=== PATIENT | female | born 1995 | race African-American/Black ===

== ENCOUNTER 2017-02-07 10:55 | Emergency (ER) | payer OTHER ==
--- NOTE | ~2017-02-07 | EKG ---
PATIENT: ROBERT MATUTE UNIT #: [id number] Ventricular Rate: 58 BPM Atrial Rate: 58 BPM P-R Interval: 128 ms QRS Duration: 88 ms Q-T Interval: 408 ms QTC Calculation(Bezet): 400 ms P [place]: 34 degrees Calculated R [place]: 71 degrees Calculated T [place]: 12 degrees Diagnosis Line: Sinus bradycardia Diagnosis Line: Otherwise normal ECG Diagnosis Line: No previous ECGs available Diagnosis Line: Confirmed by CRYSTAL HOUSE MD ([id number]) on Diagnosis Line: 02/08/2017 11:09:46 AM INTERPRETING MD: HARSH ZAMORANO
--- NOTE | ~2017-02-07 | CR72 ---
[facility] A Service of [facility] RADIOLOGY TEXT RESULTS PATIENT: ROBERT MATUTE LOCATION: [facility] : [birth year] UNIT #: [id number] AGE: [address]: Justin Parra MD SEX: F ORDER DR: [id number] [facility] [address] [place], [place] [address] [id number] MR#: [id number] Acc #: [id number] NAME: ROBERT MATUTE : 1995 SEX: F STUDY DATE/TIME: 02/07/2017 1300 UNIT: [facility] ROOM: STUDY DESCRIPTION: CR Chest Single View Portable Attending Physician: Justin Parra M.D. Ordering Physician: Justin Parra M.D. Primary Care Physician: No Primary Care Physician MEDICAL IMAGING REPORT This report is preliminary unless electronic signature is present EXAM Chest portable 02/07/2017 1300 hours HISTORY 21-year-old complaining of 3-week history of chest and back pain with nausea and headache. COMPARISON None. FINDINGS Portable upright chest demonstrates heart size at the upper limits of normal. Aortic contours are normal. The pulmonary vascularity is normal. The lungs demonstrate calcified granulomata. There is no acute pulmonary density, pleural effusion or pneumothorax. IMPRESSION There is underlying benign calcified granulomatous change. No acute cardiopulmonary findings. Dictated by... Angelina Diop M.D. THIS IS AN ELECTRONICALLY VERIFIED REPORT Angelina Diop M.D. at 02/08/2017 9:29 AM Kevin TD: 02/07/2017 18:25 JOB #: [id number] MEDICAL IMAGING REPORT Page 1 of 1 COPY
[2017-02-07 12:49] LABS: URINE SOURCE CLEAN CATCH
[2017-02-07 12:57] LABS: URINE APPEARANCE CLEAR; URINE BILIRUBIN NEG (NEG); URINE BLOOD NEG (NEG); URINE COLOR YELLOW; URINE GLUCOSE NEG (NEG); URINE KETONE NEG (NEG); URINE LEUKOCYTE ESTERASE 1+ (NEG); URINE NITRATE NEG (NEG); URINE PH 6.5 (5-8); URINE PROTEIN NEG (NEG); URINE SPECIFIC GRAVITY 1.025 (1.003-1.035)
[2017-02-07 13:02] LABS: CULTURE INDICATED? YES; URBCS1 AUWI 0-2 /[HPF] (0-2); URINE BACTERIA AUWI 1+ (NEGATIVE); URINE SQUAMOUS EPITHELIAL CELL FEW /[HPF]
[2017-02-07 14:04] LABS: BASOPHIL# 0.1 X10e3 (0-0.3); EOSINOPHIL% 0.6 % (0.0-7.0); HEMATOCRIT 40.2 % (35.0-45.0); HEMOGLOBIN 12.8 gm/dL (12.0-16.0); LYMPHOCYTE# 3.1 X10e3 (1.0-3.5); LYMPHOCYTE% 38.8 % (17.0-45.0); MEAN CELL VOLUME 79.6 FL (83-96); MEAN CORPUSCULAR HEMOGLOBIN 25.3 PG (28-34); MEAN CORPUSCULAR HGB CONC 31.7 g/dL (30-36); MONOCYTE# 0.6 X10e3 (0-1.0); MONOCYTE% 7.4 % (3.0-12.0); NEUTROPHIL# 4.2 X10e3 (1.5-7.1); NEUTROPHIL% 52.2 % (40-75); PLATELET COUNT 272 X10e3 (140-420); RED BLOOD COUNT 5.05 X10e (3.90-5.30); WHITE BLOOD COUNT 8.1 X10e3 (4.0-10.5)
[2017-02-07 14:11] LABS: DIFF IND NO
[2017-02-07 14:11] LABS: POC - CKMB <1.0 ng/mL (0.0-7.9); POC - TROPONIN <0.05 ng/mL (<=0.05)
[2017-02-07 14:18] LABS: INR 1.1; PROTHROMBIN TIME (PATIENT) 11.8 SECONDS (10.0-11.7)
[2017-02-07 14:25] LABS: BUN/CREATININE RATIO 12.5; CALCIUM SERUM 9.3 mg/dL (8.4-10.2); CREATININE SERUM 0.8 mg/dL (0.6-1.4); GLOM FILT RATE Estimated 120.5 mL/min (>60); POTASSIUM 3.8 mmol/L (3.5-5.1)
== END 2017-02-07 15:07 | disposition home or self-care (01) ==
LOC: CED 10:55
PROVIDERS: Emergency Medicine
DX: N39.0 Urinary tract infection, site not specified (principal); R51 Headache; R07.9 Chest pain, unspecified; Z90.49 Acquired absence of other specified parts of digestive tract
CPT/HCPCS: 36415; 71010; 80048; 81003; 82553; 84484; 84703; 85025; 85610; 87086; 93005; 96361; 96374; 96375; 99285; J1885; J2405